=== PATIENT | male | born 1990 | race Caucasian/White ===

== ENCOUNTER → 2018-06-05 | Outpatient (CLI) | payer MEDICAID | LOC: BMCIMAGING 10:43 | PROVIDERS: ATTEND Orthopaedic Surgery Hand Surgery | DX: S42.021D Displaced fracture of shaft of right clavicle, subsequent encounter for fracture with routine healing (principal) ==

== ENCOUNTER → 2018-06-30 | Outpatient (CLI) | payer MEDICAID | LOC: BMCIMAGING 11:07 | PROVIDERS: ATTEND Orthopaedic Surgery Hand Surgery | DX: S42.021D Displaced fracture of shaft of right clavicle, subsequent encounter for fracture with routine healing (principal) ==

== ENCOUNTER → 2018-07-28 | Outpatient (CLI) | payer MEDICAID | LOC: BMCIMAGING 10:49 | PROVIDERS: ATTEND Orthopaedic Surgery Hand Surgery | DX: S42.021D Displaced fracture of shaft of right clavicle, subsequent encounter for fracture with routine healing (principal) ==

== ENCOUNTER → 2019-01-09 | Outpatient (CLI) | payer MEDICAID | LOC: BMCIMAGING 14:21 | PROVIDERS: ATTEND Orthopaedic Surgery Hand Surgery | DX: S42.021G Displaced fracture of shaft of right clavicle, subsequent encounter for fracture with delayed healing (principal) ==

== ENCOUNTER → 2019-02-18 | Outpatient (CLI) | payer MEDICAID | LOC: BMCIMAGING 08:47 | PROVIDERS: ATTEND Orthopaedic Surgery Hand Surgery | DX: S42.021D Displaced fracture of shaft of right clavicle, subsequent encounter for fracture with routine healing (principal) ==